=== PATIENT | male | born 1955 | race Caucasian/White ===

== ENCOUNTER → 2017-11-27 | Day surgery (SDC) | payer BC ==
[2017-11-18 15:28] LABS: BASOPHILS # (AUTO) 0.1 (0.0-0.1); BASOPHILS % 1.1 % (0.0-1.0); EOSINOPHILS # (AUTO) 0.1 (0.0-0.4); EOSINOPHILS % 1.4 % (0.0-6.0); HEMOGLOBIN 15.1 g/dL (14.0-18.0); LYMPHOCYTES # (AUTO) 2.1 (1.0-3.2); LYMPHOCYTES % 32.9 % (18.0-39.1); MEAN CORPUSCULAR HEMOGLOBIN 31.9 pg (28-32); MEAN CORPUSCULAR HGB CONC 34.3 g/dL (31-35); MONOCYTES # (AUTO) 0.5 (0.2-0.8); MONOCYTES % 7.2 % (4.4-11.3); NEUTROPHILS # (AUTO) 3.7 (2.1-6.9); NEUTROPHILS % 57.1 % (38.7-80.0); PLATELET COUNT 205 x10e3/uL (140-360); RED BLOOD COUNT 4.73 x10e6/uL (4.3-5.7); RED CELL DISTRIBUTION WIDTH 12.6 % (11.7-14.4)
[2017-11-18 15:47] LABS: ANION GAP 12.1 mmol/L (8-16); BLOOD UREA NITROGEN 14 mg/dL (7-26); BUN/CREATININE RATIO 14 (6-25); CALCIUM 9.2 mg/dL (8.4-10.2); CARBON DIOXIDE 29 mmol/L (22-29); CHLORIDE 104 mmol/L (98-107); EST GLOMERULAR FILTRATION RATE > 60 ML/MIN (60-); GLUCOSE 102 mg/dL (74-118); POTASSIUM 4.1 mmol/L (3.5-5.1); SODIUM 141 mmol/L (136-145)
--- NOTE | 2017-11-18 15:57 | Diagnostic Imaging Report ---
PROCEDURE: Frontal and lateral views of the chest. COMPARISON: None. INDICATIONS: PRE OP PROSTATE FINDINGS: Lines/tubes: None. Lungs: The lungs are well inflated and clear. There is no evidence of pneumonia or pulmonary edema. Pleura: There is no pleural effusion or pneumothorax. Heart and mediastinum: The heart and the mediastinum are normal. Bones: No acute bony abnormality. IMPRESSION: 1. No acute cardiopulmonary abnormalities. Hunter Holman M.D. Dictated by: Hunter Holman M.D. on 11/18/2017 at 15:57 Electronically approved by: Hunter Holman M.D. on 11/18/2017 at 15:57
[~2017-11-27] MED LIST: ACID REFLUX MED; BACITRACIN 50,000 UNIT VIAL ONE; CEFTRIAXONE SOD 1 GM VIAL ONE; DEXAMETHASONE SOD PHOS INJ 4 MG/ML VIAL ONE; FENTANYL CITRATE/PF 100MCG/2 ML INJ ONE; LIDOCAINE HCL 1% LOCAL INJ 20 ML VIAL ONE; LIDOCAINE HCL 2% LOCAL INJ 5 ML SDV VIAL INJ ONE; MIDAZOLAM HCL 2 MG/2 ML VIAL ONE; ONDANSETRON HCL INJ 2 MG/ML VIAL ONE; PROPOFOL IV EMULSION 10 MG/ML 20 ML VIAL ONE; SEVOFLURANE INHAL SOLN 250 ML PEN BTL ONE
--- OUTSIDE RECORDS SUMMARY | 2017-11-27 08:17 | XMS REPORT ---
Author Author [facility] Address Unknown Phone Unavailable Care Team Providers Care Locate Technician Name Role Phone MARIAELENA DOHERTY Unavailable Unavailable Problems This patient has no known problems. Allergies, Adverse Reactions, Alerts This patient has no known allergies or adverse reactions. Medications This patient has no known medications. Results Test Description Test Time Test Comments Text Results Atomic Results Result Comments CHEST 2 VIEWS [place] [address] Patient Name: NESSA DESIR MR #: [id number] : 1955 Age/Sex: 62/M Req #: [id number] Adm Physician: Ordered by: MARIAELENA DOHRETY MD Report #: [id number] Location: OR Room/Bed: Procedure: [id number] DX/CHEST 2 VIEWS Exam Date: 11/18/17 Exam Time: 1510 REPORT STATUS: Signed PROCEDURE: Frontal and lateral views of the chest. COMPARISON: None. INDICATIONS: PRE OP PROSTATE FINDINGS: Lines/tubes: None. Lungs: The lungs are well inflated and clear. There is no evidence of pneumonia or pulmonary edema. Pleura : There is no pleural effusion or pneumothorax. Heart and mediastinum: The heart and the mediastinum are normal. Bones: No acute bony abnormality. IMPRESSION: 1. No acute cardiopulmonary abnormalities. Lali Scott M.D. Dictated by: Lali Scott M.D. on 11/18/2017 at 15:57 Electronically approved by: Lali Scott M.D. on 11/18/2017 at 15:57 Dictated By: LALI SCOTT MD [id number] Transcribed By: LENORA on 11/18/171556 COPY TO: MARIAELENA DOHERTY MD
--- OUTSIDE RECORDS SUMMARY | 2017-11-27 08:17 | XMS REPORT | Clinical Summary ---
Author Author [facility] Address Unknown Phone Unavailable Care Team Providers Care Bible Worker Name Role Phone Asked, Pcp PCP Unavailable Allergies No Known Allergies Current Medications Prescription Sig. Disp. Refills Start End Date Status Date MV-MINS NO.9/FOLIC/SAW Take by mouth. Active PALMETT (MULTIVIT, MIN #9-FA-SAW PALMET ORAL) pantoprazole (PROTONIX) Take 1 tablet (40 mg 30 tablet 11 11/19/19 11/19/19 Active 40 MG EC total) by mouth daily. 18 19 tabletIndications: Gastroesophageal reflux disease, esophagitis presence not specified Active Problems Not on file Encounters Date Type Specialty Care Team Description 11/19/2017 [facility] Gastroenterology Chaparro Ovalle MD Gastroesophageal reflux Encounter disease without esophagitis 11/19/2017 Procedure Pass Gastroenterology 11/19/2017 Surgery Gastroenterology Chaparro Ovalle MD ESOPHAGOGASTRODUODENOSCOP Y (EGD) with bx 11/18/2017 Office Visit Gastroenterology Chaparro Ovalle MD Gastroesophageal reflux disease, esophagitis presence not specified (Primary Dx); Dysphagia, unspecified type 11/18/2017 Anesthesia Gastroenterology Boom Rios MD Event after 11/26/2016 Family History Medical History Relation Name Comments Prostate cancer Father Ovarian cancer Mother Relation Name Status Comments Father Mother Alive Social History Tobacco Use Types Packs/Day Years Used Date Never Smoker Smokeless Tobacco: Never Used Alcohol Use Drinks/Week oz/Week Comments No Sex Assigned at Date Recorded Not on file Last Filed Vital Signs Vital Sign Reading Time Taken Blood Pressure 160/68 11/19/2017 10:15 AM CDT Pulse 50 11/19/2017 10:15 AM CDT Temperature 36.8 C (98.2 F) 11/19/2017 9:45 AM CDT Respiratory Rate 20 11/19/2017 10:15 AM CDT Oxygen Saturation 100% 11/19/2017 10:15 AM CDT Inhaled Oxygen - - Concentration Weight 108 kg (237 lb) 11/19/2017 8:48 AM CDT Height 182.9 cm (6') 11/19/2017 8:48 AM CDT Body Mass Index 32.14 11/19/2017 8:48 AM CDT Plan of Treatment Date Type Specialty Care Team Description 12/09/2017 Office Visit Gastroenterology Chaparro Ovalle MD [facility] [address] [place] [address] Health Maintenance Due Date Last Done Comments COLONOSCOPY 2006 ZOSTER VACCINE 2016 INFLUENZA VACCINE 04/08/2017 Procedures Procedure Name Priority Date/Time Associated Diagnosis Comments ESOPHAGOGASTRODUODENOSCOP 11/19/2017 Gastroesophageal reflux Y (EGD) with bx 9:30 AM CDT disease without esophagitis after 11/26/2016 Results * Surgical pathology request (11/19/2017 11:02 AM) Component Value Ref Range Surgical pathology report See link below for PDF Lab Report Result status This is Final Report to [id number] Specimen Performing Laboratory [facility] [address] [place] [id number] after 11/26/2016 Insurance Payer Benefit Subscriber ID Type Phone Address Plan / Group BCBS MADDIE xxxxxxxxxxxx PPO BLUE CROSS
--- NOTE | 2017-12-01 08:15 | Operative Report ---
DATE OF PROCEDURE: November 27, 2017 PREOPERATIVE DIAGNOSIS: Organic erectile dysfunction. POSTOPERATIVE DIAGNOSIS: Organic erectile dysfunction. OPERATIVE PROCEDURE PERFORMED: Placement of inflatable penile prosthesis. ANESTHESIA: General anesthesia. ESTIMATED BLOOD LOSS: 50 mL. INDICATIONS: Mr. Jerald Davis is a 62-year-old gentleman with a long history of organic erectile dysfunction, which has failed all conservative measures. He now presents for definitive surgical management of this problem. PROCEDURE IN DETAIL: The patient was brought into the operating room and placed in the supine position. After administration of general anesthesia, was prepped and draped in the usual sterile fashion. A Santa catheter was placed. After draining, it was clamped. A penoscrotal incision was made sharply, and dissection was carried out through the layers of the penis. Cavernosal incisions were made first on the right side and subsequently on the left side, and these were approximately 2-3 cm in length. The cavernosal bodies were then dilated proximally and distally and measured. Both measured 12 cm proximally and 7 cm distally for a total of 19 cm in length. As a result of this, a 15-cm prosthesis with two 4 cm RTE's were used. These were placed with minimal difficulty. Some mild difficulty was noted on the distal aspect of the left corporal body, but with repeat dilation this was placed without difficulty. The cavernosal incisions were then closed using interrupted PDS sutures. A subdartos pocket was created in the inferior most position in the scrotum. This area was then infiltrated using 0.25% Marcaine, and the pump was placed in this location such that the button was anteriorly. The dartos muscle was then reapproximated and closed using interrupted Vicryl sutures. A separate incision was made in the right groin approximately 5 cm in length. This was taken down to the fascia. Hemostasis was obtained using electrocautery device. An incision was made in the external oblique fascia, and the subrectus pocket was created. The reservoir was placed in this location. The tubing was brought through a separate stab incision inferior to the incision. The incision was then reapproximated and closed using running Vicryl suture. The reservoir was then filled with 65 mL of fluid. Using the method, the reservoir and pump were connected in the standard fashion. The pump was cycled and noted to have good inflation without any obvious buckling. Both wounds were copiously irrigated with antibiotic containing saline, and closed in layers. Skin being closed with a subcuticular stitch. Both wounds were then cleaned and dried, and covered with Steri-Strips and a sterile gauze dressing. The Santa catheter was removed. Anesthesia was reversed. He was transferred to a bed, and taken to the postanesthesia care unit in good condition. Of note, the needle and instrument counts were correct at the conclusion of the case. Job#: [id number] KRISS
== END | disposition home or self-care (01) ==
LOC: OR 08:15
PROVIDERS: ATTEND Urology
DX: N52.9 Male erectile dysfunction, unspecified (principal); K21.9 Gastro-esophageal reflux disease without esophagitis; Z01.810 Encounter for preprocedural cardiovascular examination; Z01.812 Encounter for preprocedural laboratory examination; Z01.818 Encounter for other preprocedural examination; Z68.31 Body mass index [BMI] 31.0-31.9, adult
CPT/HCPCS: 36415; 54401; 71046; 80048; 85025; 93005; C1813 ×2; J0696; J1100; J2001 ×2; J2250; J2405